=== PATIENT | male | born 1970 | race African-American/Black ===

== ENCOUNTER 2016-03-20 10:50 | Emergency (ER) | payer MEDICAID | END 2016-03-20 12:26 | disposition home or self-care (01) | LOC: D.ER 10:50 | DX: M54.12 Radiculopathy, cervical region (principal); M25.511 Pain in right shoulder; M25.521 Pain in right elbow; F17.200 Nicotine dependence, unspecified, uncomplicated ==

== ENCOUNTER 2016-04-03 15:50 | Emergency (ER) | payer MEDICAID | END 2016-04-03 17:14 | disposition home or self-care (01) | LOC: D.ER 15:50 | DX: L02.01 Cutaneous abscess of face (principal) ==

== ENCOUNTER 2016-09-26 07:43 | Emergency (ER) | payer SELFPAY | END 2016-09-26 08:37 | disposition home or self-care (01) | LOC: D.ER 07:43 | DX: L02.01 Cutaneous abscess of face (principal); F17.200 Nicotine dependence, unspecified, uncomplicated ==